=== PATIENT | female | born 1955 | race Caucasian/White ===

== ENCOUNTER → 2021-08-17 14:22 | Outpatient (BNVA) | payer OTHER, SELFPAY | PROVIDERS: Family Provider Nurse Practitioner; PCP Nurse Practitioner; Visit Provider Surgery | DX: R19.7 Diarrhea, unspecified (principal) | CPT/HCPCS: 99204 ==

== ENCOUNTER 2021-08-19 09:51 | Outpatient (CLI) | payer OTHER, SELFPAY | END 2021-08-19 09:52 | disposition home or self-care (01) | PROVIDERS: PCP Nurse Practitioner; Visit Provider Surgery | DX: R19.7 Diarrhea, unspecified (principal) | CPT/HCPCS: 83630; 87177; 87209; 87493; 87506 ==

== ENCOUNTER → 2021-09-21 09:30 | Outpatient (BNVA) | payer OTHER, SELFPAY | PROVIDERS: PCP Nurse Practitioner; Visit Provider Surgery | DX: R19.7 Diarrhea, unspecified (principal) | CPT/HCPCS: 99212 ==

== ENCOUNTER → 2022-01-14 08:31 | Outpatient (BNVA) | payer OTHER, SELFPAY | PROVIDERS: PCP Nurse Practitioner; Visit Provider Surgery | DX: R19.7 Diarrhea, unspecified (principal); Z86.010 Personal history of colon polyps; Z80.0 Family history of malignant neoplasm of digestive organs | CPT/HCPCS: 99213 ==

== ENCOUNTER → 2022-02-08 09:38 | Outpatient (BNVA) | payer OTHER, SELFPAY | PROVIDERS: PCP Nurse Practitioner; Visit Provider Nurse Practitioner Family | DX: I49.3 Ventricular premature depolarization (principal); Z87.891 Personal history of nicotine dependence | CPT/HCPCS: 93005; 99213; 99214 ==

== ENCOUNTER → 2022-03-02 14:19 | Outpatient (BNVA) | payer OTHER, SELFPAY | PROVIDERS: PCP Nurse Practitioner; Visit Provider Internal Medicine Cardiovascular Disease | DX: I49.3 Ventricular premature depolarization (principal); E78.2 Mixed hyperlipidemia; Z87.891 Personal history of nicotine dependence | CPT/HCPCS: 99213; 99214 ==

== ENCOUNTER 2022-05-04 05:39 | Day surgery (SDC) | payer OTHER, SELFPAY ==
[2022-05-03 09:18] VITALS: BMI 34.3
[2022-05-04 06:11] VITALS: BP 135/69; PULSE 74; RESP 18; TEMP 36.5; O2SAT 96
[2022-05-04] MEDS: sodium chloride 0.9% 1,000 ML 30 ML IV (06:21)
--- NOTE | 2022-05-04 06:37 | PM.HP ---
Providers/Chief Complaint Primary Care Provider: CAROLINA Arriaga Chief Complaint: R19.7 History of Present Illness Estephanie Garcia is a 66 year old female here for colonoscopy Review of Systems General: Reports: 10 or more systems reviewed and unremarkable except in HPI and below Medications/Allergies Home Medications Medication Instructions Recorded Confirmed Last Taken Type calcium carbonate 600 mg calcium 600 mg PO BID 08/08/19 05/03/22 05/02/22 History (1,500 mg) tablet (Calcium) cetirizine 10 mg capsule (Zyrtec) 10 mg PO DAILY 08/08/19 05/03/22 05/02/22 History metoprolol tartrate 50 mg tablet 25 mg PO BID 08/08/19 05/03/22 05/02/22 History acetaminophen 325 mg capsule 325 mg PO QID PRN Pain 08/25/20 05/03/22 05/02/22 History (Tylenol) omega 0-bzf-eof-fish oil 60 mg-90 1 cap PO DAILY 11/09/21 05/03/22 05/02/22 History mg-500 mg capsule (Fish Oil) cholecalciferol (vitamin D3) 10 10 mcg PO BID 03/02/22 05/03/22 05/02/22 History mcg (400 unit) capsule nitroglycerin 0.1 mg/hr 1 patch transdermal DAILY PRN Pain 03/02/22 05/03/22 Unknown History transdermal 24 hour patch potassium gluconate 600 mg (99 mg) 600 mg PO DAILY 03/02/22 05/03/22 05/02/22 History tablet pravastatin 80 mg tablet 40 mg PO DAILY 03/02/22 05/03/22 05/02/22 History pseudoephedrine HCl 120 mg 120 mg PO Q12H #90 tabs 03/02/22 05/03/22 05/02/22 Rx tablet,extended release (Sudafed 12 Hour) Allergies Allergy/AdvReac Type Severity Reaction Status Date / Time No Known Allergies Allergy Verified 05/03/22 09:14 PFSH Acute PFSH: Medical History Family history of colon cancer History of colon polyps Hyperlipidemia PVC (premature ventricular contraction) Surgical History History of bladder suspension procedure History of breast reconstruction 2020 History of colonoscopy with polypectomy 2017 History of hysterectomy 2005 History of lumpectomy of left breast 2007 Family History Brother CAD (coronary artery disease) Diabetes Mother Cancer Hyperlipidemia Hypertension Stroke Father Cancer Grandmother Cancer Social History Smoking and tobacco status: former smoker Alcohol intake: never Vitals/I&O/Wt Last Vital Signs Temp 97.7 F 05/04/22 06:11 Pulse 74 05/04/22 06:11 Resp 18 05/04/22 06:11 BP 135/69 05/04/22 06:11 Pulse Ox 96 05/04/22 06:11 O2 Del Method 05/04/22 06:11 Weight last 48 hrs Weight 200 lb A&P Assessment and plan (1) History of colon polyps: (2) Family history of colon cancer: Plan Colonoscopy Attestations Medical Necessity Statement*: Home Coding Level of Care Code Acute Regional Liaison for Tania Kimbrough Diagnoses History of colon polyps Z86.010 Family history of colon cancer Z80.0
--- NOTE | 2022-05-04 06:57 | ANES.PREANE2 ---
Pre-Anesthetic Assessment Height/Weight: Height 1.63 m Weight 90.718 kg Temp Pulse Resp BP Pulse Ox O2 Del Method 97.7 F 74 18 135/69 96 05/04/22 06:11 05/04/22 06:11 05/04/22 06:11 05/04/22 06:11 05/04/22 06:11 05/04/22 06:11 Preop Diagnosis: screening ate: 05/04/22 07:00 Proposed Procedures p Colonoscopy 42545,R19.7(Not Applicable) - Los Copeland, DO Was Beta Ck taken within 24 hours: N/A Was Clonidine taken within 24 hours: N/A Last Intake: 23:00 Social Tobacco and No alcohol 1/2 pack(s) per day 20 years pack years Exam alert, oriented x 3, clear to auscultation bilaterally and regular rate & rhythm Airway Submandibular: within normal limits Cervical ROM: within normal limits Mallampati: Class II Dentition: full Pulmonary Chronic Obstructive Pulmonary Disease and Cough CV/HEM Hypertension and Palpitations (PVC) None reported Hepatic None reported GI None reported Metabolic None reported Musc/skel None reported Neuropsych None reported Anesthetic Plan ASA status: 2 Anesthesia: MAC Medications/Allergies Home Medications Medication Instructions Recorded Confirmed Last Taken Type calcium carbonate 600 mg calcium 600 mg PO BID 08/08/19 05/03/22 05/02/22 History (1,500 mg) tablet (Calcium) cetirizine 10 mg capsule (Zyrtec) 10 mg PO DAILY 08/08/19 05/03/22 05/02/22 History metoprolol tartrate 50 mg tablet 25 mg PO BID 08/08/19 05/03/22 05/02/22 History acetaminophen 325 mg capsule 325 mg PO QID PRN Pain 08/25/20 05/03/22 05/02/22 History (Tylenol) omega 4-csr-sep-fish oil 60 mg-90 1 cap PO DAILY 11/09/21 05/03/22 05/02/22 History mg-500 mg capsule (Fish Oil) cholecalciferol (vitamin D3) 10 10 mcg PO BID 03/02/22 05/03/22 05/02/22 History mcg (400 unit) capsule nitroglycerin 0.1 mg/hr 1 patch transdermal DAILY PRN Pain 03/02/22 05/03/22 Unknown History transdermal 24 hour patch potassium gluconate 600 mg (99 mg) 600 mg PO DAILY 03/02/22 05/03/22 05/02/22 History tablet pravastatin 80 mg tablet 40 mg PO DAILY 03/02/22 05/03/22 05/02/22 History pseudoephedrine HCl 120 mg 120 mg PO Q12H #90 tabs 03/02/22 05/03/22 05/02/22 Rx tablet,extended release (Sudafed 12 Hour) Allergies Allergy/AdvReac Type Severity Reaction Status Date / Time No Known Allergies Allergy Verified 05/03/22 09:14 Current Medications Generic Name Dose Route Start Last Admin Trade Name Freq PRN Reason Stop Dose Admin Sodium Chloride 1,000 mls @ 30 mls/hr 05/04/22 06:00 05/04/22 06:21 Sodium Chloride 0.9% IV 05/05/22 05:59 30 mls/hr .Q24H CORNEL Administration PFSH Anesthesia Medical History Family history of colon cancer History of colon polyps Hyperlipidemia PVC (premature ventricular contraction) Surgical History History of bladder suspension procedure History of breast reconstruction 2020 History of colonoscopy with polypectomy 2017 History of hysterectomy 2004 History of lumpectomy of left breast 2007 Family History Brother CAD (coronary artery disease) Diabetes Mother Cancer Hyperlipidemia Hypertension Stroke Father Cancer Grandmother Cancer Social History Smoking and tobacco status: former smoker Alcohol intake: never Data Anesthesia Cardiac Studies: Cardiac Event Monitor 02/08/22
[2022-05-04 07:26] VITALS: BP 95/64; PULSE 86; RESP 16; TEMP 36.1; O2SAT 95
[2022-05-04 07:43] VITALS: BP 132/67; PULSE 75; RESP 16; O2SAT 95
--- NOTE | 2022-05-04 12:04 | ANE.PACU2 ---
Inpatient post-anesthesia follow up: Airway intact: Yes Vital signs: Temperature 97 F Pulse Rate 75 Respiratory Rate 16 Blood Pressure 132/67 Pulse Oximetry 95 Oxygen Delivery Me thod Room Air Oxygen Flow Rate Fraction of Inspir ed Oxygen Hydration adequate: Yes Nausea and vomiting: No Pain level: 1 Mental status: Baseline
== END 2022-05-04 08:04 | disposition home or self-care (01) ==
PROVIDERS: PCP Nurse Practitioner; Visit Provider Surgery
PROC: 0DJD8ZZ Inspection of Lower Intestinal Tract, Via Natural or Artificial Opening Endoscopic (ICD-10-PCS; CPT 45378; principal; 2022-05-04 07:00)
DX: R19.7 Diarrhea, unspecified (principal); Z86.010 Personal history of colon polyps; Z80.0 Family history of malignant neoplasm of digestive organs; D12.2 Benign neoplasm of ascending colon; J44.9 Chronic obstructive pulmonary disease, unspecified; I10 Essential (primary) hypertension; E78.5 Hyperlipidemia, unspecified; Z87.891 Personal history of nicotine dependence
CPT/HCPCS: 45380; 82274; 83630; 87493; 87506; 88305; J2704; J7030

== ENCOUNTER → 2022-05-19 16:20 | Outpatient (BNVA) | payer OTHER, SELFPAY | PROVIDERS: PCP Nurse Practitioner; Visit Provider Surgery | DX: Z09 Encounter for follow-up examination after completed treatment for conditions other than malignant neoplasm (principal); K50.10 Crohn's disease of large intestine without complications; D12.6 Benign neoplasm of colon, unspecified | CPT/HCPCS: 99212 ==

== ENCOUNTER → 2022-07-08 10:08 | Outpatient (BNVA) | payer OTHER, SELFPAY | PROVIDERS: PCP Nurse Practitioner; Referring Provider Nurse Practitioner; Visit Provider Podiatrist Foot & Ankle Surgery | DX: M21.622 Bunionette of left foot (principal); M20.12 Hallux valgus (acquired), left foot; M24.572 Contracture, left ankle | CPT/HCPCS: 73630; 99204 ==

== ENCOUNTER → 2022-08-23 13:09 | Outpatient (BNVA) | payer OTHER, SELFPAY | PROVIDERS: PCP Nurse Practitioner; Visit Provider Podiatrist Foot & Ankle Surgery | DX: M21.622 Bunionette of left foot (principal) | CPT/HCPCS: 99213 ==

== ENCOUNTER → 2022-09-16 09:48 | Outpatient (BNVA) | payer OTHER, SELFPAY | PROVIDERS: PCP Nurse Practitioner; Visit Provider Internal Medicine Cardiovascular Disease | DX: M20.12 Hallux valgus (acquired), left foot (principal); I49.3 Ventricular premature depolarization; E78.2 Mixed hyperlipidemia; Z87.891 Personal history of nicotine dependence | CPT/HCPCS: 99213 ==

== ENCOUNTER 2022-09-22 06:27 | Day surgery (SDC) | payer OTHER, SELFPAY ==
[2022-09-21 12:03] VITALS: BMI 34.3
[2022-09-22] VITALS (9 sets, daily range): BP systolic 91–108; BP diastolic 52–71; PULSE 53–72; RESP 16–18; TEMP 36.1–36.3; O2SAT 96–99
--- NOTE | 2022-09-22 | XR_ITS ---
WS: [id number] Left foot, C-arm fluoroscopy, 09/22/2022 Clinical Data: SURGICAL PROCEDURE Comparison: Left foot, 07/08/2022 Findings: There is an osteotomy of the distal left fifth metatarsal. There is a lateral plate with a screw in t he left metatarsal head. XR/XR foot LT 2V 72384 Impression: Osteotomy of the distal left fifth metatarsal.
[2022-09-22] MEDS: gabapentin 300 mg Capsule PO (06:46)
[2022-09-22] MEDS: sodium chloride 0.9% 1,000 ML 30 ML IV (06:46)
[2022-09-22] MEDS: acetaminophen 1,000 MG/100 ML PIGGYBACK 400 MG IV (06:47)
--- NOTE | 2022-09-22 07:26 | ANES.PREANE2 ---
Pre-Anesthetic Assessment Height/Weight: Height 1.63 m Weight 90.718 kg Temp Pulse Resp BP Pulse Ox O2 Del Method 97.3 F L 53 L 18 105/52 97 Room Air 09/22/22 06:39 09/22/22 06:39 09/22/22 06:39 09/22/22 06:39 09/22/22 06:39 09/22/22 06:40 Preop Diagnosis: screening Operation Date: 09/22/22 07:50 Proposed Procedures p Left foot tailor's bunionectomy 51070,M21.622(Left) - Clifford Bueno DPM Familial anesthetic complications: None Was Beta Ck taken within 24 hours: Yes Was Clonidine taken within 24 hours: N/A Last intake: Intake Last Liquid Date 09/22/22 Last Liquid Time 21:00 Last Solid Date 09/21/22 Last Solid Time 21:00 Social No alcohol and No tobacco Exam alert, oriented x 3, clear to auscultation bilaterally and regular rate & rhythm Airway Mallampati: Class II Dentition: full CV/HEM Hypertension PVCs GI crohn's Metabolic Hyperlipidemia Anesthetic Plan ASA status: 3 Anesthesia: MAC Risk of > 500 ml blood loss (7ml/kg in children): No Medications/Allergies Home Medications Medication Instructions Recorded Confirmed Last Taken Type calcium carbonate 600 mg calcium 600 mg PO BID 08/08/19 09/21/22 09/21/22 History (1,500 mg) tablet (Calcium) cetirizine 10 mg capsule (Zyrtec) 10 mg PO DAILY 08/08/19 09/21/22 09/20/22 History metoprolol tartrate 50 mg tablet 25 mg PO BID 08/08/19 09/22/22 09/22/22 05:15 History acetaminophen 325 mg capsule 325 mg PO QID PRN Pain 08/25/20 09/21/22 09/21/22 History (Tylenol) omega 8-jsl-bed-fish oil 60 mg-90 1 cap PO DAILY 11/09/21 09/22/22 2 Days Ago History mg-500 mg capsule (Fish Oil) ~09/20/22 cholecalciferol (vitamin D3) 10 10 mcg PO BID 03/02/22 09/22/22 2 Days Ago History mcg (400 unit) capsule ~09/20/22 potassium gluconate 600 mg (99 mg) 600 mg PO DAILY 03/02/22 09/21/22 09/21/22 History tablet pravastatin 80 mg tablet 40 mg PO DAILY 03/02/22 09/21/22 09/20/22 History pseudoephedrine HCl 120 mg 120 mg PO Q12H #90 tabs 07/14/22 09/21/22 09/21/22 Rx tablet,extended release (Sudafed 12 Hour) lidocaine 4 % topical patch 1 patch topical DAILY PRN Pain 09/16/22 09/21/22 Unknown History (Aspercreme (lidocaine)) Allergies Allergy/AdvReac Type Severity Reaction Status Date / Time No Known Allergies Allergy Verified 09/22/22 06:34 Current Medications Generic Name Dose Route Start Last Admin Trade Name Freq PRN Reason Stop Dose Admin Sodium Chloride 1,000 mls @ 30 mls/hr 09/22/22 06:30 09/22/22 06:46 Sodium Chloride 0.9% IV 09/23/22 06:29 30 mls/hr .Q24H CORNEL Administration PFSH Anesthesia Medical History Crohn's colitis Family history of colon cancer History of colon polyps Hyperlipidemia PVC (premature ventricular contraction) Tubular adenoma of colon Surgical History History of bladder suspension procedure History of breast reconstruction 2020 History of colonoscopy with polypectomy 2017 History of hysterectomy 2005 History of lumpectomy of left breast 2007 Family History Brother CAD (coronary artery disease) Diabetes Mother Cancer Hyperlipidemia Hypertension Stroke Father Cancer Grandmother Cancer Social History Smoking and tobacco status: former smoker Alcohol intake: never Substance/Drug Use: never Data Anesthesia Cardiac Studies: Cardiac Event Monitor 02/08/22
--- NOTE | 2022-09-22 07:33 | W.PM.OPSUD ---
Surgery/Procedure H&P Update DATE OF PROCEDURE: September 22, 2022 DATE H&P PERFORMED: 08/23/22 CHANGES TO PREVIOUS DOCUMENTATION: No changes PREOP DIAGNOSIS: screening PLANNED PROCEDURE: Operation Date: 09/22/22 07:50 Proposed Procedures p Left foot tailor's bunionectomy 05891,M21.622(Left) - Clifford Bueno DPM
[2022-09-22] MEDS: ceFAZolin 2,000 MG in sodium chloride 0.9% (plus) 50 ML 100 MG IV (07:41)
--- NOTE | 2022-09-22 08:50 | PM.OP ---
Operative Report Date of procedure: September 22, 2022 Pre-op diagnosis: Preop Diagnosis Left foot Tailor's bunion Post-op diagnosis: Same Post-op findings: The tailor's bunion deformity Procedure done: Left foot tailor's bunionectomy CPT 44581 Implants: Step implant Aurora size small Surgeon: Dr. Clifford Bueno, D.P.MJj Estimated blood loss: Less than 5 cc 30 Minutes Complications: None Findings: See above Brief History: Patient is a 67-year-old female that has a history of left foot Tailor's bunion. The patient has had the aforementioned chief complaint for some time. Conservative treatment measures have been attempted and the patient has opted for surgical intervention at this time. A lengthy discussion regarding the procedure, including risks and complications has been had with the patient and is noted in the recent clinic note. Written and verbal consent have been obtained. All patient questions have been answered to the patient?s satisfaction. No written or verbal guarantees have been given or implied. The patient has been NPO since midnight. The history has been reviewed and the history and physical is current. The signed consent was confirmed and placed in the patient chart. Patient imaging has been reviewed and is consistent with the diagnosis. Under mild sedation, the patient was brought into the operating room and placed on the table in the supine position. IV antibiotics were given by the anesthesia team as preoperative surgical prophylaxis. IV sedation was then performed by the anesthesiateam. A pneumatic tourniquet was then placed about the left ankle. The operative extremity was then prepped and draped in the usual fashion. The extremity was then elevated and exsanguinated before the tourniquet was inflated to 250 mmHg. After inflation, the following procedure was then performed. Attention was directed to the left foot where a 1.5 cm incision was made to the lateral aspect of the left foot at the level of the fifth metatarsal neck. Dissection was carried down through subcutaneous and superficial fascia to the level of the fifth metatarsal. Dissection was carried out circumferentially around the neck to expose in preparation for the osteotomy. Next a sagittal bone saw was used to make an osseous cut through the metatarsal neck of the fifth metatarsal. The fifth metatarsal was then translated medially. The broach was used to broach the canal of the fifth metatarsal. After broaching, the small was noted to be the most appropriate size. A size small ProStep implant from [employer] was inserted into the medullary canal. Good positioning of the implant was noted. The fifth metatarsal head was noted to be in appropriate position. This was then temporally fixated with a guidewire screw was then inserted into the prostate implant to provide permanent fixation. Good position of the implant was noted on C-arm imaging. The site was then irrigated with copious muscle sterile saline. Attention was directed to closure. Skin was closed with 4-0 nylon in horizontal mattress fashion. The tourniquet was let down and good hyperemic response was noted to all digits of the left foot. The incision site was dressed with Xeroform, 4 x 4 gauze, Kerlix and Leonardo bandage before the patient was placed in a post op shoe. The patient tolerated the procedure and anesthesia well and without complication. The patient was transported from the operating room to the recovery room with vital signs stable and vascular status intact to all digits of the left foot. The patient was given both written and verbal instructions to remain weight bearingas tolerated in post op shoe to the operative extremity, to keep dressings/splint clean, dry and intact and to take pain medication as directed. The patient will follow-up in the outpatient setting at their scheduled appointment. The patient was discharged with my personal number and was instructed to call if any questions or issues should arise. They were discharged home once anesthesia criteria was met.
--- NOTE | 2022-09-22 17:27 | ANE.PACU2 ---
Inpatient post-anesthesia follow up: Airway intact: Yes Vital signs: Temperature 97.2 F Pulse Rate 63 Respiratory Rate 18 Blood Pressure 108/58 Pulse Oximetry 99 Oxygen Delivery Me thod Room Air Oxygen Flow Rate 6 Fraction of Inspir ed Oxygen Hydration adequate: Yes Nausea and vomiting: No Pain level: 1 Mental status: Baseline
== END 2022-09-22 09:50 | disposition home or self-care (01) ==
PROVIDERS: PCP Nurse Practitioner; Visit Provider Podiatrist Foot & Ankle Surgery
PROC: 0QBP0ZZ Excision of Left Metatarsal, Open Approach (ICD-10-PCS; CPT 28110; principal; 2022-09-22 07:50)
DX: M21.622 Bunionette of left foot (principal); I10 Essential (primary) hypertension; E78.5 Hyperlipidemia, unspecified; Z87.891 Personal history of nicotine dependence
CPT/HCPCS: 28308; 73620; 76000; C1713; J0131; J0690; J2250; J2704; J3010; J3490; J7030

== ENCOUNTER → 2022-09-29 13:33 | Outpatient (BNVA) | payer OTHER, SELFPAY | PROVIDERS: PCP Nurse Practitioner; Visit Provider Podiatrist Foot & Ankle Surgery | DX: M21.622 Bunionette of left foot (principal); Z98.890 Other specified postprocedural states | CPT/HCPCS: 99024 ==

== ENCOUNTER → 2022-10-05 08:13 | Outpatient (BNVA) | payer OTHER, SELFPAY | PROVIDERS: PCP Nurse Practitioner; Visit Provider Podiatrist Foot & Ankle Surgery | DX: M79.672 Pain in left foot (principal); Z98.890 Other specified postprocedural states | CPT/HCPCS: 73630 ==

== ENCOUNTER 2022-10-05 11:27 | Outpatient (CLI) | payer OTHER, SELFPAY | END 2022-10-05 11:28 | disposition home or self-care (01) | LOC: SPT 11:27 | PROVIDERS: PCP Nurse Practitioner; Visit Provider Podiatrist Foot & Ankle Surgery | DX: Z46.89 Encounter for fitting and adjustment of other specified devices (principal); Z98.890 Other specified postprocedural states | CPT/HCPCS: 97760; 99024; L4361 ==

== ENCOUNTER → 2022-10-18 08:24 | Outpatient (BNVA) | payer OTHER, SELFPAY | PROVIDERS: PCP Nurse Practitioner; Visit Provider Podiatrist Foot & Ankle Surgery | DX: Z98.890 Other specified postprocedural states (principal); B35.3 Tinea pedis | CPT/HCPCS: 99024 ==

== ENCOUNTER → 2022-11-03 08:19 | Outpatient (BNVA) | payer MEDICARE, SELFPAY | PROVIDERS: PCP Family Medicine; Visit Provider Podiatrist Foot & Ankle Surgery | DX: Z98.890 Other specified postprocedural states (principal); B35.3 Tinea pedis; T81.31XA Disruption of external operation (surgical) wound, not elsewhere classified, initial encounter; Y83.8 Other surgical procedures as the cause of abnormal reaction of the patient, or of later complication, without mention of misadventure at the time of the procedure | CPT/HCPCS: 11042; 99024 ==

== ENCOUNTER → 2022-11-23 14:09 | Outpatient (BNVA) | payer MEDICARE, SELFPAY | PROVIDERS: PCP Family Medicine; Visit Provider Podiatrist Foot & Ankle Surgery | DX: Z98.890 Other specified postprocedural states (principal); B35.3 Tinea pedis; T81.31XA Disruption of external operation (surgical) wound, not elsewhere classified, initial encounter; Y83.8 Other surgical procedures as the cause of abnormal reaction of the patient, or of later complication, without mention of misadventure at the time of the procedure | CPT/HCPCS: 99024 ==

== ENCOUNTER 2023-02-02 16:09 | Emergency (ER) | payer OTHER, SELFPAY ==
[2023-02-02 16:21] VITALS: BP 135/75; PULSE 70; RESP 16; TEMP 36.8; O2SAT 99
--- NOTE | 2023-02-02 16:29 | CTR_ITS ---
PROCEDURE INFORMATION: Exam: CT Abdomen And Pelvis Without Contrast Exam date and time: 02/02/2023 5:01 PM Age: 67 years old Clinical indication: Abdominal pain; Flank; Left; Prior surgery; Surgery date: 6+ months; Surgery type: Hyst; Additional info: Left flank pain, microscopic hematuria TECHNIQUE: Imaging protocol: Computed tomography of the abdomen and pelvis without contrast. Radiation optimization: All CT scans at this facility use at least one of these dose optimization techniques: automated exposure control; mA and/or kV adjustment per patient size (includes targeted exams where dose is matched to clinical indication); or iterative reconstruction. REPORTING DATA: Count of CT and Cardiac NM exams in prior 12 months: This patient has received 0 known CTs and 0 known cardiac nuclear medicine studies in the 12 months prior to the current study. COMPARISON: No relevant prior studies available. RADIATION DOSE METRICS: Total DLP (mGy-cm): 842 FINDINGS: Lungs: No significant infiltrate or effusion within the visualized lung bases. Liver: Normal. No mass. Gallbladder and bile ducts: Normal. No calcified stones. No ductal dilation. Pancreas: Normal. No ductal dilation. Spleen: Normal. No splenomegaly. Adrenal glands: Normal. No mass. Kidneys and ureters: No urinary tract stone or obstructive uropathy. Minimal nonspecific perinephric stranding. Kidneys appear unremarkable for unenhanced exam, otherwise. Stomach and bowel: Unremarkable. No obstruction. No mucosal thickening. Increased stool content throughout the colon, and can be seen with constipation. Minimal sigmoid colon diverticulosis. No CT findings of diverticulitis. Appendix: No evidence of appendicitis. Intraperitoneal space: Unremarkable. No free air. No significant fluid collection. Vasculature: Unremarkable. No abdominal aortic aneurysm. Lymph nodes: Unremarkable. No enlarged lymph nodes. Urinary bladder: Urinary bladder is partially distended with mild wall thickening anteriorly, nonspecific. Consider cystitis. Reproductive: Previous hysterectomy. No significant adnexal abnormality. Bones/joints: Mild spondylotic change lumbar spine. Soft tissues: Unremarkable. CT/CT kidney stone 77934 IMPRESSION: 1. No urinary tract stone or obstructive uropathy. Minimal nonspecific perinephric stranding. 2. Mild wall thickening of the anterior urinary bladder, nonspecific though consider cystitis. 3. Previous hysterectomy. 4. Minimal sigmoid colon diverticulosis. No diverticulitis. 5. Increased stool content in the colon and consider constipation.
[2023-02-02] MEDS: sodium chloride 0.9% 1,000 ML 999 ML IV (16:46)
[2023-02-02 16:49] LABS: Basophils # 0.1 10^3/uL (0.0-0.1); Basophils % 0.9 %; Eosinophils # 0.2 10^3/uL (0.0-0.8); Eosinophils % 2.2 %; Hematocrit 39.3 % (36-47); Lymphocytes # 2.9 10^3/uL (0.8-4.8); Lymphocytes % 32.7 %; Mean Corpuscular HGB Conc 33.1 g/dL (30-55); Mean Corpuscular Hemoglobin 30.5 pg (27-33); Mean Corpuscular Volume 92.3 fl (85-98); Mean Platelet Volume 10.2 fL (7.4-10.4); Monocytes # 0.8 10^3/uL (0.2-0.9); Monocytes % 9.5 %; Neutrophils # 4.78 10^3/uL (1.8-7.7); Neutrophils % 54.5 %; Nucleated Red Blood Cells % 0 %; Platelet Count 246 10^3/cmm (157-399); Red Blood Count 4.26 10^6/uL (3.85-5.65); White Blood Count 8.77 10^3/uL (3.29-11.43)
[2023-02-02 16:55] VITALS: BP 140/85; PULSE 75; O2SAT 97
[2023-02-02 16:59] LABS: Add Urine Microscopic? NO; Charge for UA Resulting for Rev
[2023-02-02 17:17] LABS: Alanine Aminotransferase 15 U/L (0-33); Alkaline Phosphatase 76 U/L (35-105); Aspartate Amino Transferase 18 U/L (0-32); Blood Urea Nitrogen 9 mg/dL (8-23); Carbon Dioxide 26 mmol/L (22-29); Chloride 104 mmol/L (98-107); Glomerular Filtration Rate 62.6 mL/min (90-130); Glucose 86 mg/dL (65-115); Lipase 22 U/L (13-60); Osmolality Calculated 290 mOsm/kg (285-295); Sodium 141 mmol/L (136-145); Total Bilirubin 0.3 mg/dL (0.15-1.2)
[2023-02-02 17:19] LABS: Bilirubin Urine Neg (Negative); Blood Urine Neg (Negative); Glucose Urine UA Norm (Normal); Ketones Urine Negative (Negative); Leukocyte Esterase Urine Negative (Negative); Nitrate Urine Negative (Negative); Protein Urine Neg (Negative); Urine Appearance Clear (CLEAR); Urine Color Light yellow (Yellow); Urobilinogen Urine Norm (Negative); pH Urine 7 (5-7)
[2023-02-02] MEDS: ketorolac 30 mg/mL INJ IVP (17:29)
[2023-02-02 17:32] VITALS: BP 106/86; PULSE 66; O2SAT 96
--- NOTE | 2023-02-02 19:38 | ED_ITS ---
HPI - Abdominal Pain General: Chief Complaint: Abdominal Pain Stated Complaint: kidney stone, va sent Time Seen by Provider: 02/02/23 16:22 History of Present Illness: This patient is a 67-year-old white female who presents to the emergency department with left flank pain. She states she has had the pain for 1 month. Its been constant. She has not had any dysuria or hematuria. No fever. She had some nausea but no vomiting. Past medical history includes an irregular heartbeat and hypercholesterolemia. Review of Systems General: Reports: 10 or more systems reviewed and unremarkable except in HPI and below PFSH ED PFSH: Medical History Crohn's colitis Family history of colon cancer History of colon polyps Hyperlipidemia PVC (premature ventricular contraction) Tubular adenoma of colon Surgical History History of bladder suspension procedure History of breast reconstruction 2020 History of colonoscopy with polypectomy 2017 History of hysterectomy 2004 History of lumpectomy of left breast 2008 Family History Brother CAD (coronary artery disease) Diabetes Mother Cancer Colon Hyperlipidemia Hypertension Stroke Father Cancer Colon Grandmother Cancer Social History Smoking and tobacco status: current some day smoker Second hand smoke exposure: No Smoking risk assessment/counseling performed?: No Alcohol intake: current Alcohol intake frequency: holidays/special occasions only Desire information about alcohol rehabilitation?: No Counseling given: No Substance/Drug Use: never Desire information about substance/drug rehabilitation?: No Counseling given: No Female Reproductive History: Spontaneous abortions: No Physical Exam Const: COMMON NORMALS: no acute distress, patient oriented x3 and no limitations GENERAL APPEARANCE: cooperative and comfortable HENMT: COMMON NORMALS: normocephalic, atraumatic, Normal nasal mucous membranes and turbinates present, moist oral mucous membranes and oropharynx normal HEAD & SCALP: normal to inspection, normocephalic and atraumatic FACE & SINUS: normal facial exam NOSE: Normal nasal mucous membranes and turbinates present Eye: COMMON NORMALS: Equal, round and reactive pupils present, EOMs intact bilaterally and conjunctivae normal GENERAL EYE: appearance normal, both eyes and all related structures CONJUNCTIVA: Yes conjunctivae normal PUPIL: Yes Equal, round and reactive pupils present Neck/C-Spine: COMMON NORMALS: supple and no JVD Chest: COMMONS NORMALS: normal inspection of the chest Resp: COMMON NORMALS: normal respiratory effort and clear to auscultation bilaterally AUSCULTATION: clear to auscultation bilaterally Cardio: COMMON NORMALS: no JVD, regular rate, regular rhythm, No gallops present (Cardio), No murmurs present (Cardio) and No rub (Cardio) RATE: regular rate RHYTHM: regular rhythm GI: COMMON NORMALS: Normal to inspection, nondistended, normoactive bowel s ounds present, Soft to palpation and non-tender AUSCULTATION: Yes normoactive bowel sounds PALPATION: Yes Soft to palpation : COMMON NORMALS: Yes no CVA tenderness BLADDER/KIDNEY EXAM: Yes no CVA tenderness Back/Pelvis: COMMON NORMALS: no CVA tenderness and thoracic and lumbar spine normal to inspection Extremity: COMMON NORMALS: normal to inspection Neuro: COMMON NORMALS: patient oriented x3 and CN's II-XII intact bilaterally Psych: COMMON NORMALS: mental status grossly normal, Normal thought process present and cooperative THOUGHT PROCESS: Normal thought process present Skin: COMMON NORMALS: no rashes or lesions noted, turgor normal and no jaundice GENERAL SKIN EXAM: no rashes or lesions noted and turgor normal Course Vital Signs: Vital signs: Vital Signs Temperature 98.3 F 02/02/23 16:21 Pulse Rate 66 02/02/23 17:32 Respiratory Rate 16 02/02/23 16:21 Blood Pressure 106/86 02/02/23 17:32 Pulse Oximetry 96 02/02/23 17:32 Oxygen Delivery Me thod Room Air 02/02/23 17:32 MDM - Abdominal Pain Medical Decision Making CBC, CMP and urine analysis were normal. CT scan of the abdomen and pelvis was read by the radiologist. She does appear to be somewhat constipated. No kidney stones. Kidneys and ureters were normal. They noted some thickening of the a nterior wall of the bladder. I discussed this with the patient. She states she has been having some straining with urination. I recommended she follow-up with urology concerning that. She may need a cystoscopy and bladder function testing. Her flank pain may be more musculoskeletal. I recommended she follow- up with her primary care physician regarding that. She may need an MRI of her spine. We did give her Toradol for her pain in the emergency department. She declined stronger pain medication. She was discharged in stable condition. Lab Data 02/02/23 16:42 02/02/23 16:42 Labs/Radiology: Radiology Impressions Abdomen/Pelvis CT 02/02/23 16:29 IMPRESSION: 1. No urinary tract stone or obstructive uropathy. Minimal nonspecific perinephric stranding. 2. Mild wall thickening of the anterior urinary bladder, nonspecific though consider cystitis. 3. Previous hysterectomy. 4. Minimal sigmoid colon diverticulosis. No diverticulitis. 5. Increased stool content in the colon and consider constipation. Laboratory Results WBC 8.77 10^3/uL (3.29-11.43) 02/02/23 16:42 RBC 4.26 10^6/uL (3.85-5.65) 02/02/23 16:42 Hgb 13.00 g/dL (11.27-16.99) 02/02/23 16:42 Hct 39.3 % (36-47) 02/02/23 16:42 MCV 92.3 fl (85-98) 02/02/23 16:42 MCH 30.5 pg (27-33) 02/02/23 16:42 MCHC 33.1 g/dL (30-55) 02/02/23 16:42 RDW 13.0 % (12.1-15.1) 02/02/23 16:42 Plt Count 246 10^3/cmm (157-399) 02/02/23 16:42 MPV 10.2 fL (7.4-10.4) 02/02/23 16:42 Neut % (Auto) 54.5 % 02/02/23 16:42 Lymph % (Auto) 32.7 % 02/02/23 16:42 Harvey % (Auto) 9.5 % 02/02/23 16:42 Eos % (Auto) 2.2 % 02/02/23 16:42 Baso % (Auto) 0.9 % 02/02/23 16:42 Neut # (Auto) 4.78 10^3/uL (1.8-7.7) 02/02/23 16:42 Lymph # (Auto) 2.9 10^3/uL (0.8-4.8) 02/02/23 16:42 Harvey # (Auto) 0.8 10^3/uL (0.2-0.9) 02/02/23 16:42 Eos # (Auto) 0.2 10^3/uL (0.0-0.8) 02/02/23 16:42 Baso # (Auto) 0.1 10^3/uL (0.0-0.1) 02/02/23 16:42 Nucleated RBC % (auto) 0 % 02/02/23 16:42 Nucleated RBCs # 0.0 /100WBC 02/02/23 16:42 Sodium 141 mmol/L (136-145) 02/02/23 16:42 Potassium 4.0 mmol/L (3.5-5.1) 02/02/23 16:42 Chloride 104 mmol/L (98-107) 02/02/23 16:42 Carbon Dioxide 26 mmol/L (22-29) 02/02/23 16:42 Anion Gap 15.0 (5-19) 02/02/23 16:42 BUN 9 mg/dL (8-23) 02/02/23 16:42 Creatinine 0.9 mg/dL (0.5-0.9) 02/02/23 16:42 GFR Calculation 62.6 mL/min (90-130) L 02/02/23 16:42 Glucose 86 mg/dL (65-115) 02/02/23 16:42 Calculated Osmolality 290 mOsm/kg (285-295) 02/02/23 16:42 Calcium 9.0 mg/dL (8.5-10.5) 02/02/23 16:42 Total Bilirubin 0.3 mg/dL (0.15-1.2) 02/02/23 16:42 AST 18 U/L (0-32) 02/02/23 16:42 ALT 15 U/L (0-33) 02/02/23 16:42 Alkaline Phosphatase 76 U/L (35-105) 02/02/23 16:42 Total Protein 7.0 g/dL (6.6-8.7) 02/02/23 16:42 Albumin 4.0 g/dL (3.5-5.2) 02/02/23 16:42 Globulin 3.0 g/dL (1.3-4.6) 02/02/23 16:42 Lipase 22 U/L (13-60) 02/02/23 16:42 Urine Color Light yellow (Yellow) 02/02/23 16:58 Urine Appearance Clear (CLEAR) 02/02/23 16:58 Urine pH 7 (5-7) 02/02/23 16:58 Ur Specific Williams 1.010 (1.005-1.030) 02/02/23 16:58 Urine Protein Neg (Negative) 02/02/23 16:58 Urine Glucose (UA) Norm (Normal) 02/02/23 16:58 Urine Ketones Negative (Negative) 02/02/23 16:58 Urine Blood Neg (Negative) 02/02/23 16:58 Urine Nitrate Negative (Negative) 02/02/23 16:58 Urine Bilirubin Neg (Negative) 02/02/23 16:58 Urine Urobilinogen Norm mg/dL (Negative) 02/02/23 16:58 Ur Leukocyte Esterase Negative (Negative) 02/02/23 16:58 All radiology interpretation(s) finalized by discharge Discharge Plan Discharge Patient Disposition: Home Clinical Impression: Chronic flank pain Condition: Stable Prescriptions: No Action potassium gluconate 600 mg (99 mg) tablet 600 mg PO DAILY metoprolol tartrate 50 mg tablet 25 mg PO BID calcium carbonate [Calcium 600] 600 mg calcium (1,500 mg) tablet 600 mg PO BID Zyrtec 10 mg capsule 10 mg PO DAILY pravastatin 80 mg tablet 40 mg PO DAILY (DME) CAM boot See Rx Instructions .Route .MEDSUPPLY Qty: 1 0RF Rx Instructions: As directed omega 4-imi-mhx-fish oil [Fish Oil] 60-90-500 mg capsule 1 cap PO DAILY cholecalciferol (vitamin D3) 10 mcg (400 unit) capsule 10 mcg PO BID pseudoephedrine HCl [Sudafed 12 Hour] 120 mg tablet extended release 120 mg PO Q12H Qty: 90 3RF tramadol 50 mg tablet 50 mg PO Q8H PRN (Reason: pain) Qty: 12 0RF Discharge Orders: Discharge ED (Routine); Ordered 02/02/23 Ordered By: Romaine Andino Referrals: Marlin Torres, DEPUTY DIRECTOR OF NURSING [Primary Care Provider] - Coding Level of Care Code ED Dub Room Engineer for Chg Fwkelly
== END 2023-02-02 18:42 | disposition home or self-care (01) ==
PROVIDERS: Emergency Provider Emergency Medicine; PCP Nurse Practitioner
DX: G89.29 Other chronic pain (principal); R10.9 Unspecified abdominal pain; F17.210 Nicotine dependence, cigarettes, uncomplicated; E78.5 Hyperlipidemia, unspecified
CPT/HCPCS: 74176; 80053; 81003; 83690; 85025; 96374; 99285; J1885; J7030

== ENCOUNTER → 2023-03-10 09:50 | Outpatient (BNVA) | payer OTHER, SELFPAY | PROVIDERS: PCP Nurse Practitioner; Visit Provider Internal Medicine Cardiovascular Disease | DX: I49.3 Ventricular premature depolarization (principal); E78.2 Mixed hyperlipidemia; Z86.010 Personal history of colon polyps; F17.210 Nicotine dependence, cigarettes, uncomplicated | CPT/HCPCS: 99214 ==

== ENCOUNTER → 2023-11-06 10:14 | Outpatient (BNVA) | payer OTHER, SELFPAY | PROVIDERS: PCP Nurse Practitioner; Visit Provider Nurse Practitioner Family | DX: I49.3 Ventricular premature depolarization (principal) | CPT/HCPCS: 93005 ==

== ENCOUNTER 2024-01-03 07:00 | Outpatient (CLI) | payer OTHER, SELFPAY ==
--- NOTE | 2024-01-03 07:00 | USCV_ITS ---
Estephanie Garcia Age: 68 Gender: F : 1955 Exam Date: 01/03/2024 07:29 Ordering Phys: Claribel Dean Technologist: [place] [facility] [place]: cp sob BP: 125 / 70 HR: 59 Rhythm: Sinus Technical Quality: Adequate MEASUREMENTS (Male / Female) Normal Values 2D ECHO LV Diastolic Diameter PLAX 3.6 cm 4.2 - 5.9 / 3.9 - 5.3 cm IVS Diastolic Thickness 1.1 cm 0.6 - 1.0 / 0.6 - 0.9 cm IVS Systolic Thickness 1.5 cm LVPW Diastolic Thickness 1.3 cm 0.6 - 1.0 / 0.6 - 0.9 cm LVPW Systolic Thickness 1.8 cm LVOT Diameter 2.1 cm LV Ejection Fraction 2D Teich 58.8 % LV Ejection Fraction MOD 4C 64.1 % LV Ejection Fraction MOD 2C 69.8 % LV Ejection Fraction 2C AL 69.0 % LA Diameter 3.4 cm RA Systolic Volume 4C AL 32.0 ml RA Systolic Volume 4C MOD 31.3 ml Aorta at Sinotubular Diameter 2.7 cm IVC Diameter 2.0 cm M-MODE LA Ao Ratio MM 1.4 AV Cusp Separation MM 2.1 cm DOPPLER AV Peak Velocity 96.0 cm/s LVOT Peak Velocity 76.0 cm/s AV Area Cont Eq vti 3.1 cm squared AV Area Cont Eq pk 2.7 cm squared MV Area PHT 3.9 cm squared Mitral E to A Ratio 1.3 TV Peak Velocity 193.0 cm/s TR Peak Velocity 283.0 cm/s TR Peak Gradient 32.0 mmHg TV Peak E Velocity 98.0 cm/s Right Atrial Pressure 3.0 mmHg Pulmonary Artery Systolic Pressu 35.0 mmHg PV Peak Velocity 88.0 cm/s FINDINGS Left Ventricle Normal left ventricular size and systolic function, EF 58%.no regional wall motion abnormalities. Right Ventricle The right ventricle is normal in size and function. Right Atrium The right atrium is normal in size. Left Atrium The left atrium is normal in size. Mitral Valve Trace to mild mitral valve regurgitation. Aortic Valve No gross abnormalities noted Tricuspid Valve Trace tricuspid valve regurgitation. Estimated pulmonary artery peak systolic pressure 35 mmHg Pulmonic Valve Pulmonic valve not well visualized. Pericardium Normal pericardium without effusion. Aorta Normal ascending aorta dimension. IVC Normal inferior vena cava. CONCLUSIONS Normal left ventricular size and systolic function, EF 58%.no regional wall motion abnormalities. Trace to mild mitral valve regurgitation. Trace tricuspid valve regurgitation. Estimated pulmonary artery peak systolic pressure 35 mmHg. There is no pericardial effusion. There are no intracardiac masses. Compared to the study from 12/21/2017, there may not be a significant change Dr America Akers MD [facility] (Electronically Signed) Final Date: 09 January 2024 10:06 S
[2024-01-03 07:50] VITALS: BMI 33.5
--- NOTE | 2024-01-03 07:53 | ECG_ITS ---
[facility] Test Date: 2024-01-03 Pat Name: Estephanie Garcia Department: Room: Gender: Female Associate Director Of Development: Sandy Lerner : 1955 Requested By: Claribel Dean Order Number: [id number] Shiv MD: Rahat Lopez M.D. Interpretive Statements NAME OF STUDY: LEXISCAN SESTAMIBI STRESS TEST INDICATION: [Worsening Nausea/Diaphoresis, ] Procedure: At the baseline, the blood pressure was 106/63 mmHg with a heart rate of 58 bpm. The electrocardiogram showed normal sinus rhythm, normal axis with normal ST and T's. The Lexiscan was infused over a period of 20 seconds. A total of 0.4 mg of Lexiscan was infused. The stress phase was continued for a total of 5 minutes. Heart rate was at the end of stress phase was 74 bpm and a blood pressure of 107/75 mmHg. The EKG at the peak infusion revealed normal sinus rhythm with no significant ST-T wave changes. Sestamibi was injected 20 seconds after the Lexiscan infusion. Blood pressure at the end of recovery phase was 112/75 mmHg with a heart rate of 66 bpm. Conclusion: 1. Normal EKG response to Lexiscan infusion 2. No Lexiscan induced chest pain or cardiac arrhythmia. 3. Normal blood pressure and heart rate response. 4. Sestamibi/sestamibi perfusion scan pending; see separate report. Electronically Signed On 01-05-2024 19:52:56 CDT by Rahat Lopez M.D. [id number]
--- NOTE | 2024-01-03 07:53 | NMCV_ITS ---
NM mulugeta perf SPECT r/s* [id number] Estephanie Garcia Age: 68 Gender: F : 1955 Exam Date: 01/03/2024 09:20 Ordering Phys: Claribel Dean Technologist: JACKIE Ponce Exam Location: [facility] Indications: Worsening nausea, diaphoresis STRESS TEST Please see separate stress test report in [facility] for full findings IMAGE PROTOCOL Rest/Stress 1 Lexiscan Day Radiopharmaceutical Dose (mCi) Administration Site Administered by Rest: Tc-99m 10.8 IV JACKIE Ponce Sestamibi Stress:Tc-99m 32.8 IV JACKIE Ponce Sestamibi Rest: 03-Jan-2024 60 Discovery 630 Stress: 03-Jan-2024 30 Discovery 630 0.4mg Lexiscan. Images obtained in supine and prone position. SPECT RESULTS Technical Quality: Good Raw Data Analysis: Breast attenuation Image Corrections: No attenuation or motion correction applied Summed Stress Score: 0 Summed Rest Score: 0 Summed Difference Score: 0 PERFUSION FINDINGS SPECT images demonstrate homogeneous tracer distribution throughout the myocardium. FUNCTIONAL RESULTS (calculated via Gated SPECT) Stress Image LV EF (%): 73 Stress EDV (mL):80 TID: 1.26 Stress ESV (mL):22 FUNCTIONAL FINDINGS: There is normal left ventricular systolic function. TID ratio is elevated. IMPRESSIONS 1. Normal myocardial perfusion imaging with no evidence of ischemia. 2. LV systolic function is normal 3. TID ratio is elevated however in absence of perfusion abnormalities and normal LV function, significance of this finding is equivocal. Rahat Lopez MD (Electronically Signed) Final Date: 03 January 2024 11:55 S
[2024-01-03] MEDS: regadenoson 0.4 Mg/5 ml Syringe IVP (10:06)
[2024-01-03 10:15] VITALS: BP 109/75; PULSE 66
== END 2024-01-03 07:01 | disposition home or self-care (01) ==
PROVIDERS: PCP Nurse Practitioner; Visit Provider Nurse Practitioner Family
DX: R07.9 Chest pain, unspecified (principal); I49.3 Ventricular premature depolarization; F17.200 Nicotine dependence, unspecified, uncomplicated; E78.2 Mixed hyperlipidemia; R06.02 Shortness of breath; I34.0 Nonrheumatic mitral (valve) insufficiency; R11.0 Nausea; R61 Generalized hyperhidrosis
CPT/HCPCS: 36415; 78452; 93017; 93306; 96374; 99214; A9500; J2785

== ENCOUNTER → 2024-02-09 11:12 | Outpatient (BNVA) | payer OTHER, SELFPAY | PROVIDERS: PCP Nurse Practitioner; Visit Provider Internal Medicine Cardiovascular Disease | DX: I49.3 Ventricular premature depolarization (principal); E78.2 Mixed hyperlipidemia; F17.210 Nicotine dependence, cigarettes, uncomplicated | CPT/HCPCS: 99213 ==

== ENCOUNTER → 2024-03-26 11:13 | Outpatient (BNVA) | payer OTHER, SELFPAY | PROVIDERS: PCP Nurse Practitioner; Visit Provider Podiatrist Foot & Ankle Surgery | DX: M79.672 Pain in left foot (principal); B35.3 Tinea pedis; T81.31XA Disruption of external operation (surgical) wound, not elsewhere classified, initial encounter; Y83.8 Other surgical procedures as the cause of abnormal reaction of the patient, or of later complication, without mention of misadventure at the time of the procedure; Z98.890 Other specified postprocedural states | CPT/HCPCS: 73630; 99213 ==

== ENCOUNTER → 2024-04-24 14:24 | Outpatient (BNVA) | payer OTHER, SELFPAY | PROVIDERS: PCP Nurse Practitioner; Visit Provider Podiatrist Foot & Ankle Surgery | DX: T84.84XA Pain due to internal orthopedic prosthetic devices, implants and grafts, initial encounter (principal); Z98.890 Other specified postprocedural states; B35.3 Tinea pedis; Y79.2 Prosthetic and other implants, materials and accessory orthopedic devices associated with adverse incidents | CPT/HCPCS: 99214 ==

== ENCOUNTER → 2024-05-03 09:00 | Outpatient (BNVA) | payer OTHER, SELFPAY | PROVIDERS: PCP Nurse Practitioner; Referring Provider Nurse Practitioner; Visit Provider Student in an Organized Health Care Education/Training Program | DX: Z12.11 Encounter for screening for malignant neoplasm of colon (principal); R03.0 Elevated blood-pressure reading, without diagnosis of hypertension; K50.10 Crohn's disease of large intestine without complications | CPT/HCPCS: 99214 ==

== ENCOUNTER 2024-05-20 06:59 | Day surgery (SDC) | payer OTHER, SELFPAY ==
[2024-05-20] VITALS (7 sets, daily range): BP systolic 109–136; BP diastolic 68–80; PULSE 61–76; RESP 12–18; TEMP 36.1–36.4; O2SAT 96–99; BMI 34.3
--- NOTE | 2024-05-20 | XR_ITS ---
WS: [id number] XR foot LT 2V [id number] REASON FOR EXAM: PATRICIA PICS FINDINGS: Removal of hardware from the fracture of the distal third of the fifth metatarsal. Appliance is been completely removed. No change in alignment at the fracture site. XR/XR foot LT 2V [id number] IMPRESSION: Removal of hardware as above.
[2024-05-20] MEDS: sodium chloride 0.9% 1,000 ML 30 ML IV (07:31)
[2024-05-20] MEDS: acetaminophen 1,000 MG/100 ML PIGGYBACK 400 MG IV (07:31)
[2024-05-20] MEDS: gabapentin 300 mg Capsule PO (07:31)
--- NOTE | 2024-05-20 07:40 | W.PM.OPSUD ---
Surgery/Procedure H&P Update DATE OF PROCEDURE: May 20, 2024 DATE H&P PERFORMED: 04/24/24 H&P UPDATE INFORMATION: I have reviewed H&P completed within last 30 days, I have examined patient prior to procedure, No changes to prior documentation and H&P is in [facility] [place] EMR on date indicated PREOP DIAGNOSIS: failed orthopedic hardware PLANNED PROCEDURE: Operation Date: 05/20/24 08:15 Proposed Procedures p Hardware Removal left foot(Left) - Clifford Bueno DPM
--- NOTE | 2024-05-20 07:46 | ANES.PREANE2 ---
Pre-Anesthetic Assessment Height/Weight: Height 5 ft 4 in Weight 200 lb Temp Pulse Resp BP Pulse Ox O2 Del Method 97.6 F 73 18 136/68 97 Room Air 05/20/24 07:21 05/20/24 07:21 05/20/24 07:21 05/20/24 07:21 05/20/24 07:21 05/20/24 07:21 Preop Diagnosis: failed orthopedic hardware Operation Date: 05/20/24 08:15 Proposed Procedures p Hardware Removal left foot(Left) - LA DoyleM Was Beta Ck taken within 24 hours: N/A Was Clonidine taken within 24 hours: N/A Last intake: Intake Last Liquid Date 05/19/24 Last Liquid Time 22:00 Last Solid Date 05/19/24 Last Solid Time 20:00 Social No alcohol and No tobacco Exam alert, oriented x 3, clear to auscultation bilaterally and regular rate & rhythm Airway Submandibular: within normal limits Cervical ROM: within normal limits Mallampati: Class I Dentition: full Anesthetic Plan ASA status: 2 Anesthesia: MAC Other: No prior issues with anesthesia in the past NPO since yesterday History of hypertension on metoprolol. Preop BP 136/68 Echo 12/2023 showing EF 58% Current smoker METs greater than 4 Plan for MAC anesthetic with local via surgeon Medications/Allergies Home Medications Medication Instructions Recorded Confirmed Last Taken Type metoprolol tartrate 50 mg tablet 25 mg PO BID 08/08/19 05/20/24 05/19/24 History omega 1-ote-bqj-fish oil 60 mg-90 1 cap PO DAILY 11/09/21 05/16/24 05/15/24 History mg-500 mg capsule (Fish Oil) pravastatin 80 mg tablet 40 mg PO DAILY 03/02/22 05/16/24 09/20/22 History CAM boot #1 ea 10/05/22 05/03/24 Unknown Rx Lactobacillus acidophilus 1 1,000 mmu cells PO DAILY 11/06/23 05/16/24 05/16/24 History billion cell capsule mesalamine 400 mg tablet,delayed 400 mg PO DAILY 02/09/24 05/16/24 Unknown History release Allergies Allergy/AdvReac Type Severity Reaction Status Date / Time No Known Allergies Allergy Verified 05/16/24 11:56 Current Medications Generic Name Dose Route Start Last Admin Trade Name Freq PRN Reason Stop Dose Admin Sodium Chloride 1,000 mls @ 30 mls/hr 05/20/24 07:15 05/20/24 07:31 Sodium Chloride 0.9% IV 05/21/24 07:14 30 mls/hr .Q24H CORNEL Administration PFSH Anesthesia Medical History Tubular adenoma of colon Crohn's colitis Family history of colon cancer History of colon polyps Hyperlipidemia PVC (premature ventricular contraction) Surgical History History of lumpectomy of left breast 2007 History of breast reconstruction 2020 History of bladder suspension procedure History of hysterectomy 2004 History of colonoscopy with polypectomy 2018 Family History Brother CAD (coronary artery disease) Diabetes Mother Cancer Colon Hyperlipidemia Hypertension Stroke Father Cancer Colon Grandmother Cancer Social History Smoking and tobacco/nicotine status: current every day tobacco/nicotine user (1/2 PPD) Second hand smoke exposure: No Alcohol intake: current Alcohol intake frequency: holidays/special occasions only Substance/Drug Use: never Female Reproductive History Spontaneous abortions: No Data Anesthesia Cardiac Studies: Echocardiogram 01/03/24 Sestamibi Stress Test (Cardiology) 01/03/24 Cardiac Event Monitor 02/08/22
[2024-05-20] MEDS: ceFAZolin 2,000 mg SDV 2000 MG IVP (07:53)
[2024-05-20] MEDS: BUPivacaine 0.5% INJ 30 mL 20 ML INJECTION (07:59)
--- NOTE | 2024-05-20 08:32 | W.PM.BPON ---
Date of procedure: 05/20/24 Surgeon name: Orion AnayaPPercy Social And Human Services Assistant(s) name(s): Lazaro Procedure(s) performed: Hardware removal left Description of findings: Failed orthopedic hardware left foot Estimated blood loss: 2 cc Tourniquet time: 17 minutes Specimen(s) removed: None Post-operative diagnosis: Failed orthopedic hardware left foot
--- NOTE | 2024-05-20 08:33 | P.OP_ITS ---
Operative Report Date of procedure: May 20, 2024 Surgeon: Clifford Bueno DPM Procedure: Date of procedure: 05/20/2024 Pre-op diagnosis: Failed orthopedic hardware left foot Post-op diagnosis: same Post-op findings: Healed tailor's bunionectomy with failed orthopedic hardware Procedure done: Hardware removal left foot CPT 27140 Implants: None Specimens removed: Orthopedic hardware Surgeon: Dr. Clifford Bueno DPM Receiving Associate Store: Lazaro Estimated blood loss: 2 cc Tourniquet time: 17 minutes Complications: None Patient is a 68-year-old female that has a history of painful orthopedic hardware left foot. The patient has had the aforementioned chief complaint for some time. Conservative treatment measures have been attempted and the patient has opted for surgical intervention at this time. A lengthy discussion regarding the procedure, including risks and complications has been had with the patient and is noted in the recent clinic note. Written and verbal consent have been obtained. All patient questions have been answered to the patient?s satisfaction. No written or verbal guarantees have been given or implied. The patient has been NPO since midnight. The history has been reviewed and the history and physical is current. The signed consent was confirmed and placed in the patient chart. Patient imaging has been reviewed and is consistent with the diagnosis. Under mild sedation, the patient was brought into the operating room and placed on the table in the supine position. IV antibiotics were given by the anesthesia team as preoperative surgical prophylaxis. IV sedation was then performed by the anesthesiateam. A pneumatic tourniquet was then placed about the left ankle. The operative extremity was then prepped and draped in the usual fashion. The extremity was then elevated and exsanguinated before the tourniquet was inflated to 250mmHg. After inflation, the following procedure was then performed. Attention was directed to the left foot where a 3.5 cm incision was made overlying the fifth metatarsal phalangeal joint. This was done using a #15 blade. Dissection was carried down through subcutaneous superficial fascia to the level of the orthopedic implant. Once exposed, sharp dissection was carried out circumferentially around the implant to expose it in its entirety. The screw the implant was grasped with a hemostat and was removed from the foot and passed from the operative field. The head of the implant was then grasped with a hemostat and removed from the medullary canal of the fifth metatarsal. It was passed from the operative field. No remaining hardware was visualized in the fo ot and was confirmed with C-arm fluoroscopy. The site was irrigated with sterile saline before attention was directed to closure. Skin was closed with 4-0 nylon in horizontal mattress fashion. The tourniquet was let down good hyperemic response was noted to all digits of the left foot. Incision site was dressed with Xeroform, 4 x 4 gauze, Kerlix, Leonardo. The patient tolerated the procedure and anesthesia well and without complication. The patient was transported from the operating room to the recovery room with vital signs stable and vascular status intact to all digits of the left foot. The patient was given both written and verbal instructions to remain weightbearing as tolerated to the operative extremity, to keep dressings/splint clean, dry and intact and to take pain medication as directed. The patient will follow-up in the outpatient setting at their scheduled appointment. The patient was discharged with my personal number and was instructed to call if any questions or issues should arise. They were discharged home once anesthesia criteria was met.
--- NOTE | 2024-05-20 09:30 | ANE.PACU2 ---
Inpatient post-anesthesia follow up: Airway intact: Yes Vital signs: Temperature 97.6 F Pulse Rate 61 Respiratory Rate 18 Blood Pressure 129/79 Pulse Oximetry 99 Oxygen Delivery Me thod Room Air Oxygen Flow Rate 8 Fraction of Inspir ed Oxygen Hydration adequate: Yes Nausea and vomiting: No Pain level: 1 Mental status: Baseline
== END 2024-05-20 09:30 | disposition home or self-care (01) ==
PROVIDERS: PCP Nurse Practitioner; Visit Provider Podiatrist Foot & Ankle Surgery
PROC: (CPT 20680; principal; 2024-05-20 08:05)
DX: T84.89XA Other specified complication of internal orthopedic prosthetic devices, implants and grafts, initial encounter (principal); I10 Essential (primary) hypertension; F17.200 Nicotine dependence, unspecified, uncomplicated; E78.5 Hyperlipidemia, unspecified
CPT/HCPCS: 20680; 73620; 73630; 76000; J0131; J0690; J2250; J2704; J3010; J3490; J7030

== ENCOUNTER → 2024-06-03 15:35 | Outpatient (BNVA) | payer OTHER, SELFPAY | PROVIDERS: PCP Nurse Practitioner; Visit Provider Podiatrist Foot & Ankle Surgery | DX: T84.84XA Pain due to internal orthopedic prosthetic devices, implants and grafts, initial encounter (principal); Y79.2 Prosthetic and other implants, materials and accessory orthopedic devices associated with adverse incidents; Z98.890 Other specified postprocedural states | CPT/HCPCS: 73630; 99024 ==

== ENCOUNTER 2024-06-18 07:33 | Day surgery (SDC) | payer OTHER, SELFPAY ==
[2024-06-18 07:41] VITALS: BP 135/82; PULSE 79; RESP 18; TEMP 36.2; O2SAT 97; BMI 34.0
--- NOTE | 2024-06-18 07:56 | W.PM.OPSFHP ---
Same Day Surgery H&P Indication for Procedure/HPI DATE OF PROCEDURE: June 18, 2024 CHIEF COMPLAINT/INDICATIONFOR SURGICAL PROCEDURE: Crohn's bout PREOP DIAGNOSIS: Crohn's disease PLANNED PROCEDURE: Operation Date: 06/18/24 08:30 Proposed Procedures p Colonoscopy 37643, Z12.11, K50.10(Not Applicable) - James Pagan MD Medications/Allergies* Home Medications ?Medication ?Instructions ?Recorded ?Confirmed ?Type metoprolol tartrate 50 mg tablet 25 mg PO BID 08/08/19 06/18/24 History omega 5-pgk-thl-fish oil 60 mg-90 1 cap PO DAILY 11/09/21 06/18/24 History mg-500 mg capsule (Fish Oil) pravastatin 80 mg tablet 40 mg PO DAILY 03/02/22 06/18/24 History Lactobacillus acidophilus 1 1,000 mmu cells PO DAILY 11/06/23 06/18/24 History billion cell capsule mesalamine 400 mg tablet,delayed 400 mg PO DAILY 02/09/24 06/18/24 History release Allergies/Adverse Reactions Allergy/AdvReac Type Severity Reaction Status Date / Time No Known Allergies Allergy Verified 06/18/24 07:43 Pertinent History/Comorbid Conditions* Medical History (Updated 04/28/24 @ 20:19 by Clifford Bueno DPM) Tubular adenoma of colon Crohn's colitis Family history of colon cancer History of colon polyps Hyperlipidemia PVC (premature ventricular contraction) Surgical History (Updated 10/03/22 @ 20:42 by Clifford Bueno DPM) History of lumpectomy of left breast 2007 History of breast reconstruction 2020 History of bladder suspension procedure History of hysterectomy 2004 History of colonoscopy with polypectomy 2017 Family History (Updated 10/24/22 @ 14:12 by Jennifer Brown LPN) Diabetes Brother CAD (coronary artery disease) Brother Hyperlipidemia Mother Cancer Mother Colon Father Colon Grandmother Hypertension Mother Stroke Mother Social History Smoking and tobacco/nicotine status: unknown if used tobacco/nicotine Second hand smoke exposure: No Alcohol intake: current Alcohol intake frequency: holidays/special occasions only Substance/Drug Use: never Pertinent Exam Findings alert, oriented x 3, clear to auscultation bilaterally, regular rate & rhythm and procedure specific exam findings abdomen soft, nt, nd Recommendations Surgery/Procedure today Coding Level of Care Code Acute Code for Chg Fwd
--- NOTE | 2024-06-18 08:03 | ANES.PREANE2 ---
Pre-Anesthetic Assessment Height/Weight: Height 1.63 m Weight 89.811 kg Temp Pulse Resp BP Pulse Ox O2 Del Method 97.2 F L 79 18 135/82 97 Room Air 06/18/24 07:41 06/18/24 07:41 06/18/24 07:41 06/18/24 07:41 06/18/24 07:41 06/18/24 07:41 Preop Diagnosis: Crohn's disease Operation Date: 06/18/24 08:30 Proposed Procedures p Colonoscopy 16604, Z12.11, K50.10(Not Applicable) - James Pagan MD Last intake: Intake Last Liquid Date 06/17/24 Last Liquid Time 22:00 Last Solid Date 06/16/24 Last Solid Time 20:00 Social Tobacco and No alcohol 0.5 pack(s) per day Exam alert, oriented x 3, clear to auscultation bilaterally and regular rate & rhythm Airway Submandibular: within normal limits Cervical ROM: within normal limits Mallampati: Class II Pulmonary None reported (Smoker) CV/HEM Hypertension None reported Hepatic None reported GI Family history of colon cancer, personal history of polyps Metabolic Hyperlipidemia Neuropsych None reported Anesthetic Plan ASA status: 2 Medications/Allergies Home Medications ?Medication ?Instructions ?Recorded ?Confirmed ?Last Taken ?Type metoprolol tartrate 50 mg tablet 25 mg PO BID 08/08/19 06/18/24 06/16/24 History omega 9-gbi-tbr-fish oil 60 mg-90 1 cap PO DAILY 11/09/21 06/18/24 06/16/24 History mg-500 mg capsule (Fish Oil) pravastatin 80 mg tablet 40 mg PO DAILY 03/02/22 06/18/24 06/12/24 History CAM boot #1 ea 10/05/22 06/18/24 Unknown Rx Lactobacillus acidophilus 1 1,000 mmu cells PO DAILY 11/06/23 06/18/24 06/16/24 History billion cell capsule mesalamine 400 mg tablet,delayed 400 mg PO DAILY 02/09/24 06/18/24 06/16/24 History release Allergies Allergy/AdvReac Type Severity Reaction Status Date / Time No Known Allergies Allergy Verified 06/18/24 07:43 [facility] Anesthesia Medical History Tubular adenoma of colon Crohn's colitis Family history of colon cancer History of colon polyps Hyperlipidemia PVC (premature ventricular contraction) Surgical History History of lumpectomy of left breast 2007 History of breast reconstruction 2020 History of bladder suspension procedure History of hysterectomy 2005 History of colonoscopy with polypectomy 2018 Family History Brother CAD (coronary artery disease) Diabetes Mother Cancer Colon Hyperlipidemia Hypertension Stroke Father Cancer Colon Grandmother Cancer Social History Smoking and tobacco/nicotine status: current every day tobacco/nicotine user Second hand smoke exposure: No Alcohol intake: current Alcohol intake frequency: holidays/special occasions only Substance/Drug Use: never Female Reproductive History Spontaneous abortions: No Data Anesthesia Cardiac Studies: Echocardiogram 01/03/24 Sestamibi Stress Test (Cardiology) 01/03/24 Cardiac Event Monitor 02/08/22
[2024-06-18] MEDS: sodium chloride 0.9% 500 ML 15 ML IV (08:08)
[2024-06-18 08:32] VITALS: BP 126/78; PULSE 75; RESP 18; TEMP 36.2; O2SAT 96
[2024-06-18 08:45] VITALS: BP 126/69; PULSE 67; RESP 18; O2SAT 100
[2024-06-18 08:55] VITALS: BP 126/70; PULSE 69; RESP 18; O2SAT 98
--- NOTE | 2024-06-18 09:05 | ANE.PACU2 ---
Inpatient post-anesthesia follow up: Airway intact: Yes Vital signs: Temperature 97.2 F Pulse Rate 69 Respiratory Rate 18 Blood Pressure 126/70 Pulse Oximetry 98 Oxygen Delivery Me thod Room Air Oxygen Flow Rate Fraction of Inspir ed Oxygen Hydration adequate: Yes Nausea and vomiting: No Pain level: 1 Mental status: Baseline
== END 2024-06-18 09:05 | disposition home or self-care (01) ==
PROVIDERS: PCP Nurse Practitioner; Visit Provider Student in an Organized Health Care Education/Training Program
PROC: 0DJD8ZZ Inspection of Lower Intestinal Tract, Via Natural or Artificial Opening Endoscopic (ICD-10-PCS; CPT 45378; principal; 2024-06-18 08:30)
DX: K50.10 Crohn's disease of large intestine without complications (principal); E78.5 Hyperlipidemia, unspecified; K52.9 Noninfective gastroenteritis and colitis, unspecified; Z79.899 Other long term (current) drug therapy; Z80.0 Family history of malignant neoplasm of digestive organs; Z86.0100 Personal history of colon polyps, unspecified
CPT/HCPCS: 45380; 88305; J2704; J7040

== ENCOUNTER → 2024-07-01 08:02 | Outpatient (BNVA) | payer OTHER, SELFPAY | PROVIDERS: PCP Nurse Practitioner; Visit Provider Student in an Organized Health Care Education/Training Program | DX: Z09 Encounter for follow-up examination after completed treatment for conditions other than malignant neoplasm (principal) | CPT/HCPCS: 99213 ==

== ENCOUNTER → 2024-07-09 08:18 | Outpatient (BNVA) | payer OTHER, SELFPAY | PROVIDERS: PCP Nurse Practitioner; Visit Provider Podiatrist Foot & Ankle Surgery | DX: G89.18 Other acute postprocedural pain (principal); M79.672 Pain in left foot; M84.372A Stress fracture, left ankle, initial encounter for fracture; X58.XXXA Exposure to other specified factors, initial encounter | CPT/HCPCS: 73610; 99213 ==

== ENCOUNTER 2024-07-19 07:57 | Outpatient (CLI) | payer OTHER, SELFPAY ==
--- NOTE | 2024-07-19 08:00 | CTR_ITS ---
PROCEDURE INFORMATION: Exam: CT Left Lower Extremity, Ankle Exam date and time: 07/19/2024 8:01 AM Age: 68 years old Clinical indication: Left lateral ankle pain for about 1 month, felt a pop , HX of breast cancer; Additional info: Stress fracture TECHNIQUE: Imaging protocol: CT of the left lower extremity without contrast was performed. Exam focused on the ankle. Radiation optimization: All CT scans at this facility use at least one of these dose optimization techniques: automated exposure control; mA and/or kV adjustment per patient size (includes targeted exams where dose is matched to clinical indication); or iterative reconstruction. COMPARISON: CR XR ankle LT min 3V* [id number] 07/09/2024 8:26 AM RADIATION DOSE METRICS: Total DLP (mGy-cm): 153.14 FINDINGS: Bones/joints: There is an old healed fracture involving the distal 5th metatarsal. No acute fracture or dislocation is appreciated. Bony mineralization is normal. No blastic or lytic bony lesions are noted. No worrisome periostitis is noted. There is mild joint space narrowing with small osteophytes involving the tarsal and tarsometatarsal articulations. There is a plantar calcaneal spur. Small enthesophyte is noted at the Achilles tendon insertion. Soft tissues: There is soft tissue swelling laterally. There is enlargement of the peroneus longus tendon which could represent a degree of tendinopathy. If peroneal tendon pathology is suspected, MRI may add additional information if desired. No acute soft tissue abnormalities are otherwise noted. CT/CT ankle LT wo con* [id number] IMPRESSION: 1. No acute fracture identified. 2. 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 3. Soft tissue swelling laterally.
== END 2024-07-19 07:58 | disposition home or self-care (01) ==
PROVIDERS: PCP Nurse Practitioner; Visit Provider Podiatrist Foot & Ankle Surgery
DX: M84.30XA Stress fracture, unspecified site, initial encounter for fracture (principal); M19.072 Primary osteoarthritis, left ankle and foot; R93.6 Abnormal findings on diagnostic imaging of limbs; Z87.81 Personal history of (healed) traumatic fracture; M25.772 Osteophyte, left ankle; M77.32 Calcaneal spur, left foot; M77.52 Other enthesopathy of left foot and ankle; M67.874 Other specified disorders of tendon, left ankle and foot
CPT/HCPCS: 73700

== ENCOUNTER 2024-07-23 13:14 | Outpatient (CLI) | payer OTHER, SELFPAY ==
--- NOTE | 2024-07-23 13:18 | MRR_ITS ---
PROCEDURE INFORMATION: Exam: MR Left Lower Extremity Joint Without Contrast; Ankle Exam date and time: 07/23/2024 1:39 PM Age: 68 years old Clinical indication: Left; HX of breast cancer. Lt ankle pain, lateral aspect. Golden a pop 1 month ago, pain walking since; Additional info: Left ankle injury x 1 week ago/pain edema/instability TECHNIQUE: Imaging protocol: Magnetic resonance imaging of the left lower extremity without contrast. Exam focused on the ankle. COMPARISON: CT ankle LT wo con* [id number] 07/19/2024 8:01 AM FINDINGS: Bones/joints: There is an old healed 5th metatarsal fracture. There is very minimal marrow edema involving the plantar aspect of the calcaneus and cuboid laterally. There is cartilage loss with small osteophytes and tiny subchondral cysts most notably involving the 2nd, 3rd, and 4th tarsometatarsal joints. There is also cartilage loss with small osteophytes and subchondral cyst formation involving the articulation of the navicular with the adjacent cuneiforms. No definite acute fracture is appreciated. There is a physiologic amount of fluid within the joints. LIGAMENTS: Distal tibiofibular syndesmosis: Unremarkable. No tear. Anterior talofibular ligament: The anterior talofibular ligament is somewhat small and attenuated suggesting a partial tear. This could be acute or chronic. Posterior talofibular ligament: Unremarkable. No tear. Calcaneofibular ligament: Unremarkable. No tear. Deltoid ligament complex: Unremarkable. No tear. TENDONS: Flexor tendons of foot: Unremarkable as visualized. Tibialis posterior tendon: Unremarkable as visualized. Peroneal tendons: There is a slight vertical split tear involving the peroneus brevis tendon just proximal to and at the level of the tip of the fibula. As the peroneus longus tendon courses underneath the distal calcaneus and cuboid, there is abnormal thickening with subsequent attenuation of the tendon suggesting tendinopathy with what appears to be a complete or high-grade partial-thickness tear of the tendon as it courses underneath the foot. Extensor tendons of foot: Unremarkable as visualized. Tibialis anterior tendon: Unremarkable as visualized. Achilles tendon: Unremarkable as visualized. Tarsal canal (Sinus tarsi): Unremarkable. Normal signal of the fat. Tarsal tunnel: Unremarkable. Soft tissues: Unremarkable. Plantar fascia: Plantar fascia is unremarkable. MR/MR ankle LT wo con* [id number] IMPRESSION: 1. Mild osteoarthritis. 2. Old 5th metatarsal fracture. 3. Short-segment partial vertical split tear involving the peroneus brevis tendon at the level of the distal fibula and tip of the fibula. 4. Tendinopathy with high-grade partial-thickness versus complete tear of the peroneus longus tendon along the plantar aspect of the foot.
== END 2024-07-23 13:15 | disposition home or self-care (01) ==
LOC: RAD 13:15
PROVIDERS: PCP Nurse Practitioner; Visit Provider Nurse Practitioner Family
DX: M19.072 Primary osteoarthritis, left ankle and foot (principal); S96.812A Strain of other specified muscles and tendons at ankle and foot level, left foot, initial encounter; X58.XXXA Exposure to other specified factors, initial encounter; Z87.81 Personal history of (healed) traumatic fracture; Z85.3 Personal history of malignant neoplasm of breast; M25.772 Osteophyte, left ankle; R93.6 Abnormal findings on diagnostic imaging of limbs
CPT/HCPCS: 73721

== ENCOUNTER → 2024-07-24 13:06 | Outpatient (BNVA) | payer OTHER, SELFPAY | PROVIDERS: PCP Nurse Practitioner; Visit Provider Podiatrist Foot & Ankle Surgery | DX: M25.572 Pain in left ankle and joints of left foot (principal) | CPT/HCPCS: 99213 ==

== ENCOUNTER → 2024-09-04 13:24 | Outpatient (BNVA) | payer OTHER, SELFPAY | PROVIDERS: PCP Nurse Practitioner; Visit Provider Podiatrist Foot & Ankle Surgery | DX: B35.3 Tinea pedis (principal) | CPT/HCPCS: 99213 ==

== ENCOUNTER → 2025-03-04 10:47 | Outpatient (BNVA) | payer OTHER, SELFPAY | PROVIDERS: PCP Nurse Practitioner; Visit Provider Nurse Practitioner Family | DX: L57.8 Other skin changes due to chronic exposure to nonionizing radiation (principal); L81.4 Other melanin hyperpigmentation; L82.1 Other seborrheic keratosis; D18.01 Hemangioma of skin and subcutaneous tissue; L57.0 Actinic keratosis | CPT/HCPCS: 17000; 99213 ==

== ENCOUNTER → 2025-03-12 13:26 | Outpatient (BNVA) | payer OTHER, SELFPAY | PROVIDERS: PCP Nurse Practitioner; Visit Provider Internal Medicine Cardiovascular Disease | DX: I49.3 Ventricular premature depolarization (principal); Z85.3 Personal history of malignant neoplasm of breast | CPT/HCPCS: 99213 ==

== ENCOUNTER → 2025-04-13 14:52 | Outpatient (BNVA) | payer OTHER, SELFPAY | PROVIDERS: PCP Nurse Practitioner; Visit Provider Registered Nurse Neonatal Intensive Care | DX: R05.9 Cough, unspecified (principal) | CPT/HCPCS: 87400; 87426 ==

== ENCOUNTER → 2025-04-23 08:22 | Outpatient (BNVA) | payer OTHER, SELFPAY | PROVIDERS: PCP Nurse Practitioner; Visit Provider Podiatrist Foot & Ankle Surgery | DX: M25.572 Pain in left ankle and joints of left foot (principal); M79.672 Pain in left foot; B35.3 Tinea pedis | CPT/HCPCS: 73600; 73610; 73630; 99213 ==